=== PATIENT | female | born 1960 | race American Indian/Alaskan Native ===

== ENCOUNTER 2016-11-18 23:27 | Emergency (ER) | payer BC ==
[2016-11-19 02:17] LABS: Bilirubin,Urine NEG (Negative); Blood,Urine NEG (Negative); Ketones,Urine NEG (Negative); Leukocyte Esterase,Urine LG (Negative); Nitrite,Urine NEG (Negative); Protein,Urine <15 mg/dL mg/dL (Negative); Urobilinogen,Urine < 2.0 mg/dL (<2.0)
--- NOTE | 2016-11-19 03:15 | Emergency Department Report ---
ED Female HPI - General Chief complaint: Urogenital-Female Stated complaint: HIGH BLOOD PRESSURE Time Seen by Provider: 11/19/16 02:35 Source: patient Mode of arrival: Ambulatory Limitations: No Limitations - History of Present Illness Initial comments: This is a 56-year-old female nontoxic, well nourished in appearance, no acute signs of distress presents to the ED complaining of dysuria and urinary frequency x3 days. Patient stated she has elevated blood pressure every time she gets a urinary tract infection and stated she is 100% sure that is a urinary tract infection that she is experienced. Patient stated this is a frequency for her and she is treated with Bactrim and is resolved and usually her blood pressure is elevated during UTI. Patient denies any headache, blurry vision, chest pain, short of breath, fever, chills, nausea, vomiting, abdominal pain, or back pain. She does have a follow-up appointment with her primary care doctor tomorrow. She denies past medical history. Allergies to penicillin. MD Complaint: dysuria -: Gradual, days(s) (3) Radiation: non-radiating Severity: mild Severity scale (0 -10): 6 Quality: burning Consistency: constant Improves with: none Worsens with: urination Associated Symptoms: dysuria. denies: vaginal discharge, vaginal bleeding, abdominal pain, nausea/vomiting, fever/chills, headaches, loss of appetite, hematuria, rash, seizure, shortness of breath, syncope, weakness - Related Data Previous Rx's Medication Instructions Recorded Last Taken Type Phenazopyridine [Pyridium] 100 mg PO PC #10 tablet 10/31/14 Unknown Rx Sulfamethoxazole/Trimethoprim 1 each PO BID #14 tablet 10/31/14 Unknown Rx [Bactrim DS TAB] traMADol [Ultram] 50 mg PO Q6HR PRN #14 tablet 10/31/14 Unknown Rx Sulfamethoxazole/Trimethoprim 1 each PO BID #14 tablet 11/19/16 Unknown Rx [Bactrim DS TAB] Allergies Allergy/AdvReac Type Severity Reaction Status Date / Time penicillin Allergy Hives Verified 10/31/14 03:44 ED Review of Systems ROS: Stated complaint: HIGH BLOOD PRESSURE Other details as noted in HPI Constitutional: denies: chills, fever Eyes: denies: eye pain, eye discharge, vision change ENT: denies: ear pain, throat pain Respiratory: denies: cough, shortness of breath, wheezing Cardiovascular: denies: chest pain, palpitations Endocrine: no symptoms reported Gastrointestinal: denies: abdominal pain, nausea, diarrhea Genitourinary: dysuria. denies: urgency, discharge Musculoskeletal: denies: back pain, joint swelling, arthralgia Skin: denies: rash, lesions Neurological: denies: headache, weakness, paresthesias Psychiatric: denies: anxiety, depression Hematological/Lymphatic: denies: easy bleeding, easy bruising ED Past Medical Hx - Past Medical History Previous Medical History?: No - Surgical History Past Surgical History?: Yes Additional Surgical History: HYSTERECTOMY,TUBAL,CS - Social History Smoking Status: Never Smoker - Medications Home Medications: Home Medications Medication Instructions Recorded Confirmed Last Taken Type Phenazopyridine [Pyridium] 100 mg PO PC #10 tablet 10/31/14 Unknown Rx Sulfamethoxazole/Trimethoprim 1 each PO BID #14 tablet 10/31/14 Unknown Rx [Bactrim DS TAB] traMADol [Ultram] 50 mg PO Q6HR PRN #14 tablet 10/31/14 Unknown Rx Sulfamethoxazole/Trimethoprim 1 each PO BID #14 tablet 11/19/16 Unknown Rx [Bactrim DS TAB] ED Physical Exam - General Limitations: No Limitations General appearance: alert, in no apparent distress - Head Head exam: Present: atraumatic, normocephalic, normal inspection - Eye Eye exam: Present: normal appearance, PERRL, EOMI. Absent: scleral icterus, conjunctival injection, nystagmus, periorbital swelling, periorbital tenderness Pupils: Present: normal accommodation - ENT ENT exam: Present: normal exam, normal orophraynx, mucous membranes moist, TM's normal bilaterally, normal external ear exam - Neck Neck exam: Present: normal inspection, full ROM. Absent: tenderness, meningismus, lymphadenopathy, thyromegaly - Respiratory Respiratory exam: Present: normal lung sounds bilaterally. Absent: respiratory distress, wheezes, rales, rhonchi, stridor, chest wall tenderness, accessory muscle use, decreased breath sounds, prolonged expiratory - Cardiovascular Cardiovascular Exam: Present: regular rate, normal rhythm, normal heart sounds. Absent: bradycardia, tachycardia, irregular rhythm, systolic murmur, diastolic murmur, rubs, gallop - GI/Abdominal GI/Abdominal exam: Present: soft, normal bowel sounds. Absent: distended, tenderness, guarding, rebound, rigid, diminished bowel sounds - Rectal Rectal exam: Present: deferred - Extremities Exam Extremities exam: Present: normal inspection, full ROM, normal capillary refill. Absent: tenderness, pedal edema, joint swelling, calf tenderness - Back Exam Back exam: Present: normal inspection, full ROM. Absent: tenderness, CVA tenderness (R), CVA tenderness (L), muscle spasm, paraspinal tenderness, vertebral tenderness, rash noted - Neurological Exam Neurological exam: Present: alert, oriented X3, CN II-XII intact, normal gait, reflexes normal - Psychiatric Psychiatric exam: Present: normal affect, normal mood - Skin Skin exam: Present: warm, dry, intact, normal color. Absent: rash ED Course Vital Signs 11/19/16 11/19/16 00:12 00:42 Temperature 97.7 F 97.7 F Pulse Rate 61 61 Respiratory 18 18 Rate Blood Pressure 177/95 177/95 O2 Sat by Pulse 100 100 Oximetry - Reevaluation(s) Reevaluation #1: 11/19/16 03:14 Patient is speaking in full sentences with no signs of distress noted. Critical care attestation.: If time is entered above; I have spent that time in minutes in the direct care of this critically ill patient, excluding procedure time. ED Disposition Clinical Impression: Hypertension Qualifiers: Hypertension type: unspecified Qualified Code(s): I10 - Essential (primary) hypertension UTI (urinary tract infection) Qualifiers: Indwelling urinary catheter type: unspecified Encounter type: initial encounter Disposition: TO HOME OR SELFCARE Is pt being admited?: No Does the pt Need Aspirin: No Condition: Stable Instructions: Hypertension (ED), Urinary Tract Infection in Women (ED), Sulfamethoxazole/Trimethoprim (By mouth), Low Sodium Diet (ED) Additional Instructions: As discussed follow-up with your primary care doctor tomorrow they have an appointment and keep a daily diary of her blood pressure and presented to her primary care doctor or if symptoms worsen continue presents to emergency room as was possible. Prescriptions: Sulfamethoxazole/Trimethoprim [Bactrim DS TAB] 1 each PO BID #14 tablet Referrals: PRIMARY MD ALFREDITO [Primary Care Provider] - 3-5 Days MARY BETANCOURT MD [Staff Physician] - 3-5 Days [facility] [Outside] - 3-5 Days [facility] [Outside] - 3-5 Days Forms: Work/School Release Form(ED)
[2016-11-19 04:22] VITALS: BP 155/94
== END 2016-11-19 04:22 | disposition home or self-care (01) ==
LOC: ED 23:27
DX: N39.0 Urinary tract infection, site not specified (principal); I10 Essential (primary) hypertension; Z88.0 Allergy status to penicillin
CPT/HCPCS: 81001; 99283